=== PATIENT | female | born 1970 | race Caucasian/White ===

== ENCOUNTER 2016-12-22 09:11 | Emergency (ER) | payer BC ==
[2016-12-22 09:38] VITALS: TEMP 99; BMI 24.1
--- NOTE | 2016-12-22 10:09 | EDPRACDOC ---
- General Information Chief Complaint: Flu-Like Symptoms Stated Complaint: CONGESTION Time Seen by Provider: 12/22/16 09:56 Information Source: Patient Mode Of Arrival: Car Home Medications: Home Medications Diphenhydramine HCl 25 mg PO Q6-8H PRN #20 capsule 10/31/16 Azithromycin [Zithromax] 250 mg PO DAILY #6 tablet 12/22/16 Methylprednisolone [Medrol] 4 mg PO DAILY #1 tab.ds.pk 12/22/16 Allergies/Adverse Reactions: Allergies Allergy/AdvReac Type Severity Reaction Status Date / Time amoxicillin Allergy Edema-Oral/ Verified 12/22/16 09:38 Lip promethazine HCl Allergy Rash-Genera Verified 12/22/16 09:38 [From Phenergan] lized - History of Present Illness Onset: 1 day HPI: PT PRESENTS WITH NASAL CONGESTION AND DRAINAGE. STATES SHE HAS YELLOW/GREEN SPUTUM. STATES SHE HAS FACIAL PAIN AND PRESSURE. DENIES NAUSEA OR VOMITING. 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 (Medication/ Zyrtec Dose/Time) ED Past Medical History - History Reviewed Yes Nurses notes reviewed and agree except as marked - Patient Medical History Psychological History: Denies: Depression Surgical History: Reports: Appendectomy, Cholecystectomy - Social Medical History Smoking Status: Never smoker EDM Review of Systems - Review of Systems ROS Negative Except as Marked: Yes All systems reviewed and were negative except as marked - Physical Exam Constitutional: Alert Oriented to: Time, Person, Place Last recorded Vital Signs: Last Vital Signs Temp 99.0 F 12/22/16 09:34 Pulse 102 12/22/16 09:34 Resp 18 12/22/16 09:34 BP 135/85 12/22/16 09:34 Pulse Ox 98 12/22/16 09:34 Oxygen Pulse Oxygen Saturation 98 O2 Device Oxygen Flow Rate Fraction of Inspired Oxygen ( FIO2) - HEENT Head: Normal ( normocephalic) Eye Exam: Normal (PERRL, EOMI, Sclera white) Oropharynx: Normal (Pharynx:Moist without exudate,Gums-no swelling) Tympanic Membrane: Normal Nose: Congestion Neck: Normal (FROM, trachea at midline) - Respiratory/Cardiovascular Respiratory: Normal - CTA (BBS clear to auscultation without adventitious sounds ) Cardiovascular: Tachycardia - GI Auscultation: Normal (NABS) Palpation: Normal (Soft,No rebound or guarding, non distended) Tenderness: Non tender Tam's Sign: Negative Rectal Exam: Deferred - Musculoskeletal Back: Normal (Non-Tender) Extremities: Normal (Normal tone, Pulses 2+ No cyanosis or edema, FROM) - Integumentary Skin: Normal, Warm, Dry Lymphatics: Normal (no adenopathy) - Neurologic Memory Impaired: Normal Motor Function: Normal (Normal tone, Pulses 2+ No cyanosis or edema, FROM) Cranial Nerve: Normal (CN II-X11 intact sensation, strength 5/5) Cerebellar: Normal Mood Description: Normal Perception: Normal - Differential Diagnosis Sinusitis Decision Time to Discharge: 10:09 - Departure Disposition: Home Condition: Stable Final Diagnosis: Acute sinusitis Instructions: Sinusitis (ED) Education/Counseling Given To: Patient Education/Counseling Given Regarding: Diagnosis, Treatment, Prognosis, Follow Up Referrals: Teofilo Cameron II, MD [Staff Physician] - One Week Prescriptions: New Azithromycin [Zithromax] 250 mg PO DAILY #6 tablet Methylprednisolone [Medrol] 4 mg PO DAILY #1 tab.ds.pk No Action Diphenhydramine HCl 25 mg PO Q6-8H PRN #20 capsule PRN Reason: Allergy Symptoms Forms: Excuse Note Additional Instructions: INCREASE FLUID INTAKE. FOLLOW UP WITH PRIMARY CARE PROVIDER NEXT WEEK. TAKE ALL ANTIBIOTICS PRESCRIBED. RETURN TO THE ED FOR WORSENING SYMPTOMS OR CONCERNS.
[2016-12-22 10:19] VITALS: BP 123/77; PULSE 92
== END 2016-12-22 10:30 | disposition home or self-care (01) ==
LOC: ED 09:11
DX: J01.90 Acute sinusitis, unspecified (principal)
CPT/HCPCS: 99283